=== PATIENT | female | born 1960 | race Caucasian/White ===

== ENCOUNTER 2016-08-13 00:23 | Emergency (ER) | payer OTHER, MEDICARE ==
[~2016-08-13] VITALS: Ht 170.2 cm; Wt 51.8 kg
[~2016-08-13 00:23] MED LIST: ADDERALL XR30 MG OR; AVELOX400 MG OR; BACTRIM DS1 TAB PO; CEPHALEXIN500 M1 PO; CHLORZOXAZON500 MG PO; CIPROFLOXACN500 MG PO; FLONASE NASAL50 MCG; GABAPENTIN800 MG PO; MECLIZINE12.5 MG PO; MIRCETTE28 DAY PO; NAMENDA10 MG OR; NAMENDA5 MG OR; NEURONTIN800 MG OR; NORCO1 TA1 PO; PANCOF EXP OR; PERCOCET1 TA2; PREDNISONE10 MG PO; SEROQUEL XR400 MG OR; SEROQUEL100 MG OR; SMZ-TMP DS1 TAB PO; VENTOLIN HF1 IN; VOLTAREN1 %; XANAX1 MG OR; XANAX1 MG PO
[2016-08-13] MEDS ORDERED: ULTRAM50 M1 PO (01:29)
[2016-08-13 02:20] VITALS: BP 148/79
== END 2016-08-13 02:18 | disposition home or self-care (01) | DRG 563 ==
LOC: ED 00:23
DX: S63.502A Unspecified sprain of left wrist, initial encounter (principal); M25.512 Pain in left shoulder; V49.9XXA Car occupant (driver) (passenger) injured in unspecified traffic accident, initial encounter; Y92.414 Local residential or business street as the place of occurrence of the external cause; M25.532 Pain in left wrist; M25.522 Pain in left elbow

== ENCOUNTER 2016-12-24 12:05 | Emergency (ER) | payer MEDICARE, OTHER ==
[~2016-12-24] VITALS: Ht 170.2 cm; Wt 50.0 kg
[~2016-12-24 12:05] MED LIST changes: -ADDERALL XR30 MG OR; +ADDERALL XR30 MG PO; -SEROQUEL XR400 MG OR; +SEROQUEL XR400 MG PO; +ULTRAM50 M1 PO; -VOLTAREN1 %; +VOLTAREN1%GEL TOP
[2016-12-24 14:00] VITALS: BP 128/82
== END 2016-12-24 14:00 | disposition home or self-care (01) ==
LOC: ED 12:05
DX: S92.515A Nondisplaced fracture of proximal phalanx of left lesser toe(s), initial encounter for closed fracture (principal); M25.475 Effusion, left foot; W51.XXXA Accidental striking against or bumped into by another person, initial encounter; Y92.009 Unspecified place in unspecified non-institutional (private) residence as the place of occurrence of the external cause

== ENCOUNTER 2017-05-12 12:40 | Emergency (ER) | payer MEDICARE, OTHER ==
[~2017-05-12] VITALS: Ht 170.2 cm; Wt 50.0 kg
[2017-05-12] MEDS ORDERED: CLEOCIN300 MG PO (14:08)
[2017-05-12 15:00] VITALS: BP 118/61
[2017-05-12] MEDS ORDERED: BACTRIM DS1 TAB PO (15:12)
== END 2017-05-12 15:00 | disposition home or self-care (01) ==
LOC: ED 12:40
DX: J02.9 Acute pharyngitis, unspecified (principal); R05 Cough

== ENCOUNTER 2017-06-12 12:24 | Emergency (ER) | payer MEDICARE, OTHER ==
[~2017-06-12] VITALS: Ht 170.2 cm; Wt 52.8 kg
[~2017-06-12 12:24] MED LIST changes: +CLEOCIN300 MG PO
[2017-06-12 13:51] LABS: HEMATOCRIT 34.6 % (37.0-47.0); HEMOGLOBIN 11.6 g/dl (12.0-16.0); IMMATURE GRANULOCYTES 0.6 % (0.0-1.0); MEAN CELL VOLUME 86.3 fL CALC (80.0-100.0); MEAN CORPUSCULAR HGB 28.9 pG CALC (26.0-32.0); MEAN CORPUSCULAR HGB CONC 33.5 g/L CALC (32.0-36.0); NEUT# 11.51 thou/uL (2.00-7.15); RED BLOOD COUNT 4.01 mill/uL (4.20-5.60); RED CELL DISTRI WIDTH 14.1 % (11.5-15.5)
[2017-06-12 14:14] LABS: INFLUENZA A NONE DETECTED (NONE DETECT); INFLUENZA B NONE DETECTED (NONE DETECT)
[2017-06-12 14:57] LABS: ALBUMIN 3.7 g/dL (3.2-5.0); ALKALINE PHOSPHATASE 113 u/l (38-126); ANION GAP 14 (6-22 (CALC)); BILIRUBIN, TOTAL 0.5 mg/dL (0.0-1.4); BUN 15 mg/dL (7-17); BUN/CREATININE RATIO 18 (12-20 (CALC)); CALCIUM 9.1 mg/dL (8.4-10.2); CARBON DIOXIDE 24 mmol/l (22-30); CHLORIDE 101 mmol/l (95-108); CREATININE 0.8 mg/dL (0.5-1.0); GFR > 60 ML/MIN (>=60 (CALC)); GFR FOR AFR.AMER. > 60 ML/MIN (>=60 (CALC)); GLUCOSE 101 mg/dL (65-105); SGOT/AST 32 u/l (14-36); SGPT/ALT 24 u/l (9-52); SODIUM 136 mmol/l (137-146); TOTAL PROTEIN 6.5 g/dL (6.3-8.2)
[2017-06-12] MEDS ORDERED: LEVAQUIN750 M1 PO (15:14)
[2017-06-12 15:20] VITALS: BP 101/61
== END 2017-06-12 15:25 | disposition home or self-care (01) ==
LOC: ED 12:24
PROVIDERS: Family Medicine
DX: J18.9 Pneumonia, unspecified organism (principal); F41.9 Anxiety disorder, unspecified; F42.9 Obsessive-compulsive disorder, unspecified

== ENCOUNTER 2017-06-22 11:42 | Emergency (ER) | payer MEDICARE, OTHER ==
[~2017-06-22] VITALS: Ht 170.2 cm; Wt 50.0 kg
[~2017-06-22 11:42] MED LIST changes: +LEVAQUIN750 M1 PO
[2017-06-22 12:22] LABS: HEMATOCRIT 33.4 % (37.0-47.0); HEMOGLOBIN 10.9 g/dl (12.0-16.0); IMMATURE GRANULOCYTES 1.5 % (0.0-1.0); MEAN CELL VOLUME 85.6 fL CALC (80.0-100.0); MEAN CORPUSCULAR HGB 27.9 pG CALC (26.0-32.0); MEAN CORPUSCULAR HGB CONC 32.6 g/L CALC (32.0-36.0); NEUT# 7.09 thou/uL (2.00-7.15); RED BLOOD COUNT 3.9 mill/uL (4.20-5.60); RED CELL DISTRI WIDTH 14.4 % (11.5-15.5)
[2017-06-22 12:41] LABS: ALBUMIN 3.5 g/dL (3.2-5.0); ALKALINE PHOSPHATASE 95 u/l (38-126); ANION GAP 16 (6-22 (CALC)); BILIRUBIN, TOTAL 0.1 mg/dL (0.0-1.4); BUN 15 mg/dL (7-17); BUN/CREATININE RATIO 22 (12-20 (CALC)); CALCIUM 9.3 mg/dL (8.4-10.2); CARBON DIOXIDE 25 mmol/l (22-30); CHLORIDE 105 mmol/l (95-108); CREATININE 0.7 mg/dL (0.5-1.0); GFR > 60 ML/MIN (>=60 (CALC)); GFR FOR AFR.AMER. > 60 ML/MIN (>=60 (CALC)); GLUCOSE 88 mg/dL (65-105); POTASSIUM 4.1 mmol/l (3.5-5.1); SGOT/AST 13 u/l (14-36); SGPT/ALT 20 u/l (9-52); SODIUM 142 mmol/l (137-146); TOTAL PROTEIN 6.2 g/dL (6.3-8.2)
[2017-06-22 12:54] LABS: MYOGLOBIN 20 ng/mL (0 - 62)
[2017-06-22] MEDS ORDERED: INDOCIN25 MG PO (13:00)
[2017-06-22 13:10] VITALS: BP 142/83
== END 2017-06-22 13:10 | disposition home or self-care (01) ==
LOC: ED 11:42
PROVIDERS: Emergency Medicine
DX: R09.1 Pleurisy (principal); R06.02 Shortness of breath; R05 Cough

== ENCOUNTER 2017-10-21 18:32 | Emergency (ER) | payer MEDICARE, OTHER ==
[~2017-10-21] VITALS: Ht 170.2 cm; Wt 51.4 kg
[~2017-10-21 18:32] MED LIST changes: +INDOCIN25 MG PO
[2017-10-21] MEDS ORDERED: KEFLEX500 M1 PO (19:06)
[2017-10-21 19:36] VITALS: BP 129/83
== END 2017-10-21 19:30 | disposition home or self-care (01) ==
LOC: ED 18:32
DX: S01.83XA Puncture wound without foreign body of other part of head, initial encounter (principal); F41.9 Anxiety disorder, unspecified; F42.9 Obsessive-compulsive disorder, unspecified; W26.8XXA Contact with other sharp object(s), not elsewhere classified, initial encounter; Y92.009 Unspecified place in unspecified non-institutional (private) residence as the place of occurrence of the external cause

== ENCOUNTER 2018-02-22 03:04 | Emergency (ER) | payer MEDICARE, OTHER ==
[~2018-02-22] VITALS: Ht 170.2 cm; Wt 51.8 kg
[~2018-02-22 03:04] MED LIST changes: +KEFLEX500 M1 PO
[2018-02-22] MEDS ORDERED: BACTRIM DS1 TAB PO (03:34)
[2018-02-22] MEDS ORDERED: BENADRYL 50MG C50 MG PO (03:34)
[2018-02-22 04:00] VITALS: BP 147/94
== END 2018-02-22 04:00 | disposition home or self-care (01) ==
LOC: ED 03:04
DX: L03.114 Cellulitis of left upper limb (principal); S50.862A Insect bite (nonvenomous) of left forearm, initial encounter; F41.9 Anxiety disorder, unspecified; F42.9 Obsessive-compulsive disorder, unspecified; W57.XXXA Bitten or stung by nonvenomous insect and other nonvenomous arthropods, initial encounter

== ENCOUNTER 2018-05-26 18:01 | Emergency (ER) | payer MEDICARE, OTHER ==
[~2018-05-26] VITALS: Ht 170.2 cm; Wt 50.0 kg
[~2018-05-26 18:01] MED LIST changes: +BENADRYL 50MG C50 MG PO
[2018-05-26] MEDS ORDERED: IBUPROFEN600 MG PO (19:40)
[2018-05-26 19:45] VITALS: BP 131/84
== END 2018-05-26 19:45 | disposition home or self-care (01) ==
LOC: ED 18:01
DX: S70.01XA Contusion of right hip, initial encounter (principal); S80.01XA Contusion of right knee, initial encounter; F41.9 Anxiety disorder, unspecified; F42.9 Obsessive-compulsive disorder, unspecified; W54.8XXA Other contact with dog, initial encounter

== ENCOUNTER 2018-07-11 14:54 | Emergency (ER) | payer MEDICARE, OTHER ==
[~2018-07-11] VITALS: Ht 170.2 cm; Wt 42.0 kg
[~2018-07-11 14:54] MED LIST changes: +IBUPROFEN600 MG PO
[2018-07-11] MEDS ORDERED: BACTRIM DS1 TAB PO (15:52)
[2018-07-11] MEDS ORDERED: XANAX1 MG PO (16:02)
[2018-07-11 16:04] VITALS: BP 132/75
== END 2018-07-11 16:00 | disposition home or self-care (01) ==
LOC: ED 14:54
PROC: 0H9HXZZ Drainage of Right Upper Leg Skin, External Approach (ICD-10-PCS; principal; 2018-07-11)
DX: L02.415 Cutaneous abscess of right lower limb (principal); F31.9 Bipolar disorder, unspecified; F41.8 Other specified anxiety disorders